=== PATIENT | male | born 1975 | race Asian ===

== ENCOUNTER 2017-05-27 12:49 | Emergency (ER) | payer SELFPAY ==
[~2017-05-27] VITALS: Ht 162.6 cm; Wt 76.0 kg
[2017-05-27 12:59] VITALS: Ht 162.6 cm; Wt 76.0 kg
--- NOTE | 2017-05-27 14:51 | ERD ---
ER Documentation Chief Complaint Chief Complaint pt bib self with c/o head, neck , back and chest congestion for wks (CHRIS BRODERICK PA-C) HPI 42-year-old male presenting with a chief complaint of headache and chest pain that radiates to the back. Chest pain worse with exertion. No medical history. No family cardiac or pulmonary history. No medications. No recent travel. No sick contacts. Denies cough, fever, chills, meningismus, abdominal pain, nausea, vomiting, diarrhea. Patient has no other complaints and describes no other associated manifestations. Nursing notes have been reviewed and are consistent with history given. (CHRIS BRODERICK PA-C) ROS All systems reviewed and are negative except as per history of present illness. (CHRIS BRODERICK PA-C) Allergies Allergies: Coded Allergies: No Known Allergy (Unverified , 05/27/17) Physical Exam Vitals Vital Signs Date Time Temp Pulse Resp B/P Pulse Ox O2 Delivery O2 Flow Rate FiO2 05/27/17 15:00 Nasal Cannula 2 05/27/17 12:59 98.3 79 18 118/82 98 (REX MURCIA NP) Physical Exam Const: 42-year-old male in mild distress Head: Atraumatic Eyes: Normal Conjunctiva ENT: Normal External Ears, Nose and Mouth. Neck: Full range of motion..~ No meningismus. Resp: Clear to auscultation bilaterally Cardio: Regular rate and rhythm, no murmurs Abd: Soft, non tender, non distended. Normal bowel sounds Skin: No petechiae or rashes Back: No midline or flank tenderness Ext: No cyanosis, or edema Neur: Awake and alert Psych: Normal Mood and Affect (CHRIS BRODERICK PA-C) Result Diagram: 05/27/17 1400 05/27/17 1400 Results 24 hrs Laboratory Tests Test 05/27/17 14:00 05/27/17 20:30 White Blood Count 6.310^3/ul Red Blood Count 5.6010^6/ul Hemoglobin 15.4g/dl Hematocrit 45.9% Mean Corpuscular Volume 82.0fl Mean Corpuscular Hemoglobin 27.5pg Mean Corpuscular Hemoglobin Concent 33.6g/dl Red Cell Distribution Width 13.6% Platelet Count 48615^3/UL Mean Platelet Volume 10.4fl Neutrophils % 64.6% Lymphocytes % 26.7% Monocytes % 6.9% Eosinophils % 1.0% Basophils % 0.5% Nucleated Red Blood Cells % 0.0/100WBC Neutrophils # 4.010^3/ul Lymphocytes # 1.710^3/ul Monocytes # 0.410^3/ul Eosinophils # 0.110^3/ul Basophils # 0.010^3/ul Nucleated Red Blood Cells # 0.010^3/ul Prothrombin Time 13.1Sec Prothrombin Time Ratio 1.0 INR International Normalized Ratio 0.99 Activated Partial Thromboplast Time 24.1Sec Sodium Level 144mmol/L Potassium Level 4.2mmol/L Chloride Level 102mmol/L Carbon Dioxide Level 33mmol/L Anion Gap 13 Blood Urea Nitrogen 12mg/dl Creatinine 0.85mg/dl Glucose Level 126mg/dl Calcium Level 9.9mg/dl Total Bilirubin 0.3mg/dl Direct Bilirubin 0.00mg/dl Indirect Bilirubin 0.3mg/dl Aspartate Amino Transf (AST/SGOT) 37IU/L Alanine Aminotransferase (ALT/SGPT) 62IU/L Alkaline Phosphatase 80IU/L Troponin I < 0.012ng/ml < 0.012ng/ml Total Protein 7.9g/dl Albumin 4.4g/dl Globulin 3.50g/dl Albumin/Globulin Ratio 1.25 Creatine Kinase 113IU/L Creatine Kinase Index 0.8 Creatinine Kinase MB (Mass) 0.91ng/ml Current Medications Medications (Trade) Dose Ordered Sig/Leesa Route PRN Reason Start Time Stop Time Status Last Admin Dose Admin Sodium Chloride (NS) 1,000 ml @ 1,000 mls/hr Q1H ONCE IV 05/27/17 18:30 05/27/17 19:29 DC 05/27/17 18:37 Ketorolac Tromethamine (Toradol) 30 mg ONCE STAT IV 05/27/17 18:28 05/27/17 18:30 DC 05/27/17 18:37 Morphine Sulfate (morphine) 4 mg ONCE STAT IV 05/27/17 18:28 05/27/17 18:30 DC 05/27/17 18:37 Metoclopramide HCl (Reglan) 10 mg ONCE ONCE IV 05/27/17 18:30 05/27/17 18:31 DC 05/27/17 18:37 Diphenhydramine HCl (Benadryl) 25 mg ONCE ONCE IV 05/27/17 20:00 05/27/17 20:01 DC 05/27/17 20:03 PROCEDURE: Noncontrast CT Head. CLINICAL INDICATION: Pain. TECHNIQUE: Noncontrast CT of the head was obtained. The administered radiation dose was CTDI vol = 43 mGy, DLP = 630 mGy-cm. One or more of the following dose reduction techniques were used: automated exposure control, adjustment of the mA and/or kV according to patient size and/or use of iterative reconstruction technique. DICOM images are available. COMPARISON: No pertinent prior examinations were submitted for comparison. FINDINGS: The ventricles and cortical sulci are mildly enlarged. There is mild decreased attenuation within the periventricular and subcortical white matter compatible with chronic microvascular changes. A small chronic left frontal jai insular cortical infarct is noted. There is no acute intracranial hemorrhage or extra-axial fluid collection. There is no mass effect. No midline shift is identified. There is no loss of orozco-white differentiation to suggest acute infarction. The orbits are within normal limits. The paranasal sinuses are well aerated. No destructive osseous lesion is identified. IMPRESSION: No acute findings. Mild diffuse parenchymal volume loss and chronic microvascular changes. Small chronic left frontal infarct. RPTAT: HIKT Signed By: Alexi Ojeda 05/27/2017 9:26:[address]'s CT scan of the brain results, no acute neurologic emergency at this time, patient was discharged according to Emili GONZALEZ instructions (REX MURCIA NP) Departure Diagnosis: Primary Impression: Headache Additional Impression: Chest pain, atypical CHRIS BRODERICK PA-C May 27, 2017 14:51 REX MURCIA NP May 27, 2017 21:29
[2017-05-27 15:07] LABS: BASOPHILS % 0.5 % (0.0-2.0); EOSINOPHILS # 0.1 10^3/ul (0.0-0.5); HEMATOCRIT 45.9 % (42.0-52.0); HEMOGLOBIN 15.4 g/dl (14.0-18.0); LYMPHOCYTES # 1.7 10^3/ul (0.8-2.9); LYMPHOCYTES % 26.7 % (15.0-51.0); MEAN CORPUSCULAR HEMOGLOBIN 27.5 pg (29.0-33.0); MEAN CORPUSCULAR HGB CONC 33.6 g/dl (32.0-37.0); MEAN PLATELET VOLUME 10.4 fl (7.4-10.4); MONOCYTE # 0.4 10^3/ul (0.3-0.9); MONOCYTES % 6.9 % (0.0-11.0); NEUTROPHILS % 64.6 % (39.0-77.0); PLATELET COUNT 188 10^3/UL (140-415); RED CELL DISTRIBUTION WIDTH 13.6 % (11.5-14.5); WHITE BLOOD COUNT 6.3 10^3/ul (4.8-10.8)
[2017-05-27 15:27] LABS: INR 0.99; PROTIME 13.1 Sec (12.2-14.2)
[2017-05-27 15:28] LABS: PARTIAL THROMBOPLASTIN TIME 24.1 Sec (25.0-35.0)
[2017-05-27 15:31] LABS: ALANINE AMINOTRANSFERASE 62 IU/L (13-69); ALBUMIN 4.4 g/dl (3.3-4.9); ALBUMIN/GLOBULIN RATIO 1.25; ALKALINE PHOSPHATASE 80 IU/L (42-121); ANION GAP 13 (8-16); ASPARTATE AMINO TRANSFERASE 37 IU/L (15-46); BILIRUBIN,INDIRECT 0.3 mg/dl (0-1.1); BILIRUBIN,TOTAL 0.3 mg/dl (0.2-1.3); BLOOD UREA NITROGEN 12 mg/dl (7-20); CALCIUM 9.9 mg/dl (8.4-10.2); CARBON DIOXIDE 33 mmol/L (21-31); CHLORIDE 102 mmol/L (97-110); CREATININE 0.85 mg/dl (0.61-1.24); GLUCOSE 126 mg/dl (70-220); POTASSIUM 4.2 mmol/L (3.5-5.1); SODIUM 144 mmol/L (135-144); TOTAL PROTEIN 7.9 g/dl (6.1-8.1)
[2017-05-27 15:45] LABS: TROPONIN-I < 0.012 ng/ml (0.00-0.12)
--- NOTE | 2017-05-27 15:53 | RADRPT ---
PROCEDURE: XR Chest. CLINICAL INDICATION: Chest pain TECHNIQUE: Single portable view of the chest was obtained COMPARISON: No priors for comparison FINDINGS: The trachea is midline. The cardiac silhouette and pulmonary vascularity are within normal limits. T he lungs are clear. The costophrenic angles are sharp. IMPRESSION: 1. No evidence of acute cardiopulmonary disease. RPTAT: AAPP Physician Bibi Date Time Electronically viewed and signed by Aracelis Webber Physician on 05/27/2017 15:53 PAYTON/
[2017-05-27] MEDS ORDERED: KETOROLAC 30 MG INJ IV STA (18:28)
[2017-05-27] MEDS ORDERED: morphine 4 MG/ML VIAL IV STA (18:28)
[2017-05-27] MEDS ORDERED: METOCLOPRAMIDE 10 MG INJ IV ONE (18:30)
[2017-05-27] MEDS ORDERED: SOD CHLORIDE 0.9% 1,000 ML IV ONE (18:30)
[2017-05-27] MEDS ORDERED: DIPHENHYDRAMINE 50 MG INJ IV ONE (20:00)
[2017-05-27 21:05] LABS: CREATINE KINASE 113 IU/L (23-200)
[2017-05-27 21:18] LABS: CK-MB 0.91 ng/ml (0.0-2.4); TROPONIN-I < 0.012 ng/ml (0.00-0.12)
--- NOTE | 2017-05-27 21:26 | RADRPT ---
PROCEDURE: Noncontrast CT Head. CLINICAL INDICATION: Pain. TECHNIQUE: Noncontrast CT of the head was obtained. The administered radiation dose was CTDI vol = 43 mGy, DLP = 630 mGy-cm. One or more of the following dose reduction techniques were used: automa lulú exposure control, adjustment of the mA and/or kV according to patient size and/or use of iterati ve reconstruction technique. DICOM images are available. COMPARISON: No pertinent prior examinations were submitted for comparison. FINDINGS: The ventricles and cortical sulci are mildly enlarged. There is mild decreased attenuation within t he periventricular and subcortical white matter compatible with chronic microvascular changes. A small chronic left frontal jai insular cortical infarct is noted. There is no acute intracranial hemorrhage or extra-axial fluid collection. There is no mass effect. No midline shift is identified . There is no loss of orozco-white differentiation to suggest acute infarction. The orbits are within normal limits. The paranasal sinuses are well aerated. No destructive osseous lesion is identified. IMPRESSION: No acute findings. Mild diffuse parenchymal volume loss and chronic microvascular changes. Small chronic left frontal infarct. RPTAT: HIKT .Alexi Ojeda MD, Date Time Electronically viewed and signed by .Alexi Ojeda MD, on 05/27/2017 21:26 .T/
[2017-05-27 21:32] VITALS: BP 103/71; PULSE 65; RESP 18; TEMP 97.9
== END 2017-05-27 21:41 | disposition home or self-care (01) ==
LOC: FTE 12:49
DX: R51 Headache (principal); R07.89 Other chest pain
CPT/HCPCS: 70450; 71010; 80053; 82550; 82553; 84484; 85025; 85610; 85730; 93005; J1200; J1885; J2270; J2765; J7030; 36415; 96374; 96375